=== PATIENT | female | born 1940 | race Caucasian/White ===

== ENCOUNTER 2017-03-18 12:03 | Observation (INO) | payer OTHER ==
[~2017-03-18] VITALS: Ht 165.1 cm; Wt 66.8 kg
[2017-03-18 14:23] LABS: HEMATOCRIT 36.7 % (36.0-46.0); MCH 29.8 PG (29.0-34.0); MCHC 33.2 G/DL (30.0-36.0); MCV 89.5 FL (83-99); MEAN PLAT.VOLUME 9.4 uM^3 (9.5-12.4); PLATELET COUNT 207 K/uL (156-360); RBC DIS.WIDTH-CV 12.3 % (11.8-14.6); RBC DIS.WIDTH-SD 39.7 % (39-53)
[2017-03-18 14:32] LABS: CHLORIDE 99 mEq/L (99-109); POTASSIUM 3.8 mEq/L (3.7-5.4); SODIUM 138 mEq/L (136-147)
[2017-03-18 14:33] LABS: GLUCOSE 149 mg/dL (70-99)
[2017-03-18 14:35] LABS: ANION GAP 9 MEQ/L (2-14)
[2017-03-18 14:37] LABS: GFR ESTIMATE (CALCULATED) > 59 mL/min/
[2017-03-18 14:38] LABS: UREA NITROGEN (BUN) 22 mg/dL (9-23)
[2017-03-18 16:16] LABS: TROP-I INTERPRETATION NEGATIVE; TROPONIN-I < 0.01 ng/mL (0.0-0.30)
[2017-03-18 18:39] LABS: TROP-I INTERPRETATION NEGATIVE; TROPONIN-I < 0.01 ng/mL (0.0-0.30)
[2017-03-18] MEDS ORDERED: PROPRANOLOL HC160 MG PO (20:58)
[2017-03-18] MEDS ORDERED: LO-DOSE ASPIRIN81 M1 PO (20:58)
[2017-03-18] MEDS ORDERED: HYDROCHLOROTHIA25 MG PO (20:58)
[2017-03-18] MEDS ORDERED: ATORVASTATIN CA10 MG PO (20:58)
[2017-03-18] MEDS ORDERED: CALCIUM 500 +1 EAC2 PO (20:59)
[2017-03-18] MEDS ORDERED: OCUVITE TABLET1 EACH PO (20:59)
[2017-03-18] MEDS ORDERED: TYLENOL WITH C1 EACH PO (21:00)
[2017-03-19 00:23] VITALS: BP 118/72
[2017-03-19 03:36] VITALS: BP 112/66
[2017-03-19 06:13] LABS: HEMATOCRIT 25.7 % (36.0-46.0); MCH 30.4 PG (29.0-34.0); MCHC 33.9 G/DL (30.0-36.0); MCV 89.9 FL (83-99); RBC DIS.WIDTH-CV 12.5 % (11.8-14.6); RBC DIS.WIDTH-SD 40.5 % (39-53)
[2017-03-19 06:14] LABS: PLATELET COUNT UNABLE TO REPORT K/uL (156-360); RED BLOOD COUNT 2.86 M/uL (3.80-5.20)
[2017-03-19 06:18] LABS: TROP-I INTERPRETATION NEGATIVE; TROPONIN-I < 0.01 ng/mL (0.0-0.30)
[2017-03-19 06:27] LABS: ANION GAP 7 MEQ/L (2-14); CHLORIDE 105 MEQ/L (99-109); GFR ESTIMATE (CALCULATED) > 59 mL/min/; GLUCOSE 133 mg/dL (70-99); POTASSIUM 3.7 MEQ/L (3.7-5.4); SAMPLE HEMOLYSIS CHECK 0; SAMPLE ICTERIC CHECK 0; SAMPLE LIPEMIA CHECK 0; SODIUM 140 MEQ/L (136-147); UREA NITROGEN (BUN) 21 mg/dL (9-23)
[2017-03-19 07:30] VITALS: BP 138/72
[2017-03-19 09:07] LABS: ADD MIUA? NO; BILIRUBIN NEGATIVE; BLOOD NEGATIVE; COLOR YELLOW ((YELLOW)); GLUCOSE (STRIP) NEGATIVE; KETONES 20; LEUKOCYTES NEGATIVE; NITRITE NEGATIVE; PROTEIN (STRIP) NEGATIVE; SPECIFIC GRAVITY 1.021 (1.000-1.030); UROBILINOGEN 0.2 MG/DL (0.2-1.0)
[2017-03-19] MEDS ORDERED: LITE COAT ASPI325 M1 PO (09:17)
[2017-03-19 11:34] VITALS: BP 127/63
[2017-03-19 15:55] VITALS: BP 124/58
[2017-03-19 20:38] VITALS: BP 150/75
[2017-03-20 00:21] VITALS: BP 131/69
[2017-03-20 04:09] VITALS: BP 129/78
[2017-03-20 05:47] LABS: TROP-I INTERPRETATION NEGATIVE; TROPONIN-I 0.01 ng/mL (0.0-0.30)
[2017-03-20 08:00] VITALS: BP 143/76
[2017-03-20 11:56] VITALS: BP 154/76
== END 2017-03-20 15:15 | disposition home or self-care (01) ==
LOC: EME 12:03 → 5WEST 21:36 → EDOF 21:36 → 5WEST 22:45
PROVIDERS: Hospitalist; Physician Assistant Medical
DX: R55 Syncope and collapse (principal); I10 Essential (primary) hypertension; D72.829 Elevated white blood cell count, unspecified; E78.5 Hyperlipidemia, unspecified; G43.909 Migraine, unspecified, not intractable, without status migrainosus; E78.00 Pure hypercholesterolemia, unspecified; S42.141A Displaced fracture of glenoid cavity of scapula, right shoulder, initial encounter for closed fracture; S22.41XA Multiple fractures of ribs, right side, initial encounter for closed fracture; W10.9XXA Fall (on) (from) unspecified stairs and steps, initial encounter; Y93.E2 Activity, laundry; Y92.018 Other place in single-family (private) house as the place of occurrence of the external cause; S01.01XA Laceration without foreign body of scalp, initial encounter; S61.411A Laceration without foreign body of right hand, initial encounter
CPT/HCPCS: 70450; 71020; 71250; 72125; 73030; 80048; 81003; 84484; 85027; 93005; 97530 GP; 99281; 99285; G0378; G8978 GP CK; G8979 CJ; G8987 GO CJ; G8987 GO CL; J1644; J7030